=== PATIENT | female | born 1940 | race Caucasian/White ===

== ENCOUNTER 2017-11-26 08:31 | Day surgery (SDC) | payer MEDICARE, OTHER ==
[~2017-11-26] VITALS: Ht 157.5 cm; Wt 87.1 kg
[~2017-11-26 08:31] MED LIST: LEVOTHYROXINE125 MCG PO; LISINOPRIL-HCT1 EAC1 PO; SIMVASTATIN10 MG PO
--- NOTE | 2017-11-26 10:54 | NUR ---
11/26/17 1054 Shara Kumar 1049 PT ARRIVED IN PACU SLEEPY WITH NO C/O'S. ABD SOFT.
--- NOTE | 2017-11-27 08:57 | OR ---
[facility] [address], [place] [address] Signed DATE OF OPERATION: 11/26/2017 SURGEON: Oniel Umanzor MD PREOPERATIVE DIAGNOSES: 1. Personal history of colonic polyps in 2010. 2. Colonic tattoo use in the mid right colon x2 as well as hepatic flexure. 3. External hemorrhoids. POSTOPERATIVE DIAGNOSES: 1. Moderate internal and external hemorrhoids. 2. Moderate sigmoid diverticulosis. PROCEDURE: Colonoscopy without biopsy. ESTIMATED BLOOD LOSS: None. INDICATIONS: Nasir is a 77-year-old female, who came to us in 2010 for a screening colonoscopy. 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 Consequently, we left 2 tattoos [id number] and then one tattoo just a little distal to that. She also had some external hemorrhoids at that time. In 2012, we went back, we took out several hyperplastic polyps and we left a tattoo in the hepatic flexure. She now returns for followup colonoscopy. She said she is doing well. She has good muscle mass, good functional status. There is no family history of colon cancer or polyps. She has no lower GI complaints currently. In the office, I gave Nasir a pamphlet on colonoscopy and we reviewed that together along with the risks including, but not limited to, gas bloating, crampy abdominal pain, bleeding, perforation, requiring surgery, and missed diagnosis. We also reviewed the written instructions for the bowel prep. She also understands the need for IV conscious sedation. She expressed understanding and wished to proceed. PROCEDURE NOTE: Nasir was taken into our endoscopy suite and placed in the left lateral decubitus position. She was given 7 mg of Versed and 150 mcg of fentanyl to cover the case. The adult colonoscope was then introduced and advanced all around into the cecum under direct visualization of camera without difficulty. Her prep was quite good. The scope was slowly withdrawn. We could easily see the appendiceal orifice along with the Electronically Signed By: ONIEL UMANZOR MD 11/27/17 0857 PATIENT NAME: NASIR BARRIOS OPERATIVE REPORT DATE OF : 42 REPORT #: [id number] PHYSICIAN: ONIEL UMANZOR MD PCP: CHRISTIE WALL MD REPORT IS CONFIDENTIAL AND NOT TO BE RELEASED WITHOUT AUTHORIZATION [facility] [address] [place] [id number] Signed ileocecal valve. We had taken pictures throughout for photodocumentation. We found the 2 tattoo [id number] in the mid right colon and then just distal to that, we found another tattoo in the mid right colon and as we came around hepatic flexure, we found the last of the tattoos. We did see her sigmoid diverticula. They were minimal to moderate in number, moderate in size and scattered about. The rectum was unremarkable. Upon retroflexion of the scope, we could see some additional internal hemorrhoid tissue. After this, the gas was suctioned out and the colonoscope removed. Nasir tolerated the procedure quite well. RECOMMENDATIONS: Nasir can follow up in 5 years for repeat colonoscopy so long as her health holds up due to her personal history of colonic polyps. Oniel Umanzor MD ALB/MODL /[id number] cc: MD Norris Billy DO Copies: ONIEL UMANZOR MD, ARIAN DO ~ Electronically Signed By: ONIEL UMANZOR MD 11/27/17 0857 PATIENT NAME: NASIR BARRIOS OPERATIVE REPORT DATE OF : 42 REPORT #: [id number] PHYSICIAN: ONIEL UMANZOR MD PCP: CHRISTIE WALL MD REPORT IS CONFIDENTIAL AND NOT TO BE RELEASED WITHOUT AUTHORIZATION
== END 2017-11-26 11:32 | disposition home or self-care (01) ==
LOC: OPS 08:31 → DS 08:31 → OPS 09:45
PROVIDERS: Colon & Rectal Surgery
PROC: 0DJD8ZZ Inspection of Lower Intestinal Tract, Via Natural or Artificial Opening Endoscopic (ICD-10-PCS; principal; 2017-11-26 09:45)
DX: Z12.11 Encounter for screening for malignant neoplasm of colon (principal); K64.8 Other hemorrhoids; K64.4 Residual hemorrhoidal skin tags; K57.30 Diverticulosis of large intestine without perforation or abscess without bleeding; I10 Essential (primary) hypertension; E78.5 Hyperlipidemia, unspecified; E03.9 Hypothyroidism, unspecified; Z86.010 Personal history of colon polyps; Z98.890 Other specified postprocedural states; Z88.8 Allergy status to other drugs, medicaments and biological substances; Z79.899 Other long term (current) drug therapy
CPT/HCPCS: 99153; G0500; J2250; J3010; J7120